=== PATIENT | female | born 1935 | race Caucasian/White ===

== ENCOUNTER 2020-06-30 13:11 | Emergency (ER) | payer OTHER ==
[~2020-06-30] VITALS: Ht 162.6 cm; Wt 65.9 kg
[~2020-06-30 13:11] MED LIST: ASPI81TA52 PO; CALC1CAP21 PO; CARV6.253 PO; GABA300C PO; LEVO250T58 PO; OXYC-145 PO; RIFA550T PO; SERT50TA10 PO; SPIR50TA5 PO; TRAZ-256 PO; VIT1CAPS46 PO
[2020-06-30 13:16] VITALS: BP 99/78
--- NOTE | 2020-06-30 15:14 | NUR ---
pt has been up to the bathroom and is now back in her room in her wheelchair.
[2020-06-30] MEDS ORDERED: VALA100031 PO (16:12)
[2020-06-30] MEDS ORDERED: CEPH250T PO (16:12)
[2020-06-30] MEDS ORDERED: GABA-530 PO (16:18)
== END 2020-06-30 16:27 | disposition home or self-care (01) ==
LOC: ER 13:12
DX: B00.9 Herpesviral infection, unspecified (principal); L03.90 Cellulitis, unspecified; R10.2 Pelvic and perineal pain; Z88.0 Allergy status to penicillin; Z88.2 Allergy status to sulfonamides; Z88.8 Allergy status to other drugs, medicaments and biological substances; Z79.82 Long term (current) use of aspirin; Z79.01 Long term (current) use of anticoagulants; Z79.899 Other long term (current) drug therapy
CPT/HCPCS: 99283